=== PATIENT | female | born 1975 | race Caucasian/White ===

== ENCOUNTER 2017-05-24 16:50 | Emergency (ER) | payer BC, OTHER ==
[~2017-05-24] VITALS: Ht 165.1 cm; Wt 73.0 kg
[~2017-05-24 16:50] MED LIST: PREN1TAB60 PO
[2017-05-24] MEDS ORDERED: SODIUM CHLORIDE FLUSH 10ML SYR IVF ONE (17:00)
[2017-05-24 17:42] LABS: ASPARTATE AMINO TRANSFERASE 17 U/L (15-37); BLOOD UREA NITROGEN 12 mg/dL (7-18)
[2017-05-24 17:47] LABS: IS PT STATUS REG ER OR PRE ER? YES
[2017-05-24] MEDS ORDERED: NORE1TAB11 PO (19:57)
[2017-05-24 20:27] LABS: HCG UR OBC PASS
[2017-05-24 20:57] VITALS: BP 151/83
== END 2017-05-24 21:03 | disposition home or self-care (01) ==
LOC: ED 20:57
DX: R51 Headache (principal); R53.83 Other fatigue; Z00.00 Encounter for general adult medical examination without abnormal findings
CPT/HCPCS: 36415; 71010; 80053; 81025; 84439; 84443; 84484; 85025; 93005; 99285

== ENCOUNTER 2021-03-05 10:48 | Emergency (ER) | payer OTHER ==
[~2021-03-05] VITALS: Ht 162.6 cm; Wt 82.0 kg
[~2021-03-05 10:48] MED LIST changes: +NORE1TAB11 PO
--- NOTE | 2021-03-05 10:56 | NUR ---
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
--- NOTE | 2021-03-05 11:26 | NUR ---
PT RESING COMFORTABLY IN BED, SOME COUGHING, PT CONCERNED ABOUT O2 SAT WHEN SHE COUGHS, OTHERWISE VSKRIS CarvajalN. CONNECTED TO BP AND O2 MONITORS, JULES LARSON 8 DAYS AGO.
[2021-03-05] MEDS ORDERED: KETOROLAC 30 MG/1 ML ONE (12:41)
[2021-03-05 12:43] VITALS: BP 135/88
--- NOTE | 2021-03-05 12:45 | NUR ---
Pt c/o 09/03 pain in L neck and shoulder from herniated discs. Discussed with Dr. Iraheta, orders recieved for toradol. Pt medicated per MAR, denies other needs.
--- NOTE | 2021-03-05 12:53 | NUR ---
dr acosta at bedside to discuss poc
[2021-03-05] MEDS ORDERED: KETOROLAC 30 MG/1 ML IM ONE (13:00)
== END 2021-03-05 13:08 | disposition home or self-care (01) ==
LOC: ED 13:00
DX: U07.1 COVID-19 (principal); J12.82 Pneumonia due to coronavirus disease 2019; M54.2 Cervicalgia; M47.22 Other spondylosis with radiculopathy, cervical region
CPT/HCPCS: 71045; 93005; 96372; 99283; J1885